=== PATIENT | female | born 1955 | race Caucasian/White ===

== ENCOUNTER 2020-02-14 23:44 | Emergency (ER) | payer MEDICARE ==
[2020-02-15 00:24] LABS: #Eosinphils 0.1 thou/uL (0.0-0.7); #Lymphocytes 1.4 thou/uL (1.20-3.40); #Monocytes 0.5 thou/uL (0.11-0.59); #Neutrophils 4.5 thou/uL (1.40-6.50); %Basophils 0.4 % (0.0-1.0); %Lymphocytes 21.4 % (21.0-51.0); %Monocytes 7.8 % (0.0-10.0); %Neutrophils 69.4 % (42.0-75.0); Mean Corpuscular HGB CONC 34.1 g/dL (32.0-36.0); Mean Corpuscular Hemoglobin 32.4 pg (27.0-31.0); Mean Corpuscular Volume 95.1 fL (78.0-98.0); Platelet Count 153 thou/uL (130-400); RBC Distribution Width 11.2 % (11.5-14.5); Red Blood Cell (RBC) Count 3.71 mill/uL (4.20-5.40); White Blood Cell (WBC) Count 6.5 thou/uL (4.8-10.8)
[2020-02-15 00:46] LABS: ALT (SGPT) 44 U/L (8-55); AST (SGOT) 53 U/L (5-34); Albumin 3.6 g/dL (3.4-4.8); Alkaline Phosphatase 101 U/L (40-110); Anion Gap 13 mmol/L (10-20); BUN (Urea Nitrogen) 21 mg/dL (9.8-20.1); Bilirubin, Total 0.4 mg/dL (0.2-1.2); Calc. Creatinine Clearance 0 mL/min (70-130); Carbon Dioxide 19 mmol/L (23-31); Chloride 111 mmol/L (98-107); Estimated GFR-MDRD 56; Globulin 3.1 g/dL (2.4-3.5); Glucose 117 mg/dL (80-115); Potassium 3.2 mmol/L (3.5-5.1); Protein, Total 6.7 g/dL (6.0-8.3); Sodium 140 mmol/L (136-145)
--- NOTE | 2020-02-15 07:23 | RAD ---
PORTABLE CHEST 1 VIEW: DATE: 02/14/2020. TIME: 11:58 p.m. HISTORY: Dyspnea. FINDINGS: The heart size is normal. The lungs are expanded without lobar consolidation, pneumothoraces, or ple ural effusions. IMPRESSION: No acute process. POS: AMADOU
--- NOTE | 2020-02-15 07:46 | CT ---
PRELIMINARY REPORT/[facility]/EMERGENCY AFTER HOURS PROCEDURE Exam: CT brain without contrast History: Slurred speech with altered mental status. Comparison: None. Findings: There are punctate bilateral basal ganglia calcifications. Bilateral periventricular and rice bcortical white matter hypodensities are nonspecific, most likely on the basis of chronic small vesse l ischemia. Goff-white interface preserved throughout. No evidence of sulcal effacement. No intracranial hemorrha ge, mass effect or midline shift. No hydrocephalus or extra-axial fluid collection. Calvarium intact. No focal scalp hematoma identified. Vascular calcifications are present. Orbits, paranasal sinuses a nd mastoid air cells are unremarkable. Impression: 1. No acute intracranial abnormality identified. If concern persists, consider MRI. 2. Senescent intracranial findings, as above. ELECTRONICALLY SIGNED BY: Wilfredo Deluna DO February 15, 2020 12:48:34 AM CDT FINAL REPORT CT BRAIN WITHOUT CONTRAST: I agree with the preliminary report given by Dr. Wilfredo Deluna of [facility]. POS: AMADOU
--- NOTE | 2020-02-15 07:51 | CT ---
PRELIMINARY REPORT/[facility]/EMERGENCY AFTER HOURS PROCEDURE CTA ANGIO CHEST W WO CON History: F65, ELEVATED D-DIMER, DYSPNEA. HX OF LUNG CANCER Comparison: None Findings: Cardiac size within normal limits. No pericardial effusion identified. Thoracic aorta is n ormal in caliber. No acute aortic abnormality. Mild atherosclerotic changes, including the coronary arteries. No pulmonary embolism identified. Motion artifact somewhat limits evaluation of the dista l branches. No evidence of lymphadenopathy in the chest by size criteria. Scattered subcentimeter ly mph nodes are nonspecific. Tracheobronchial tree appears patent. Chronic interstitial lung markings a re most pronounced in the lower lung zones. Mild fibrotic changes versus superimposed mild airspace opacities in the lung bases. No pleural effusion or pneumothorax identified. Status post cholecystectomy. Common bile duct measur es up to 9 mm. No intrahepatic biliary ductal dilatation identified. Osseous degenerative changes th roughout. There is diffuse osteopenia. No acute osseous abnormality. 5 mm sclerotic focus in the T 10 vertebral body. Impression: 1. No pulmonary embolism or acute aortic abnormality identified. 2. Chronic interstitial changes. Fibrotic changes are suspected in the inferior aspects of the lung bases. Superimposed mild airspace opacities are not excluded. Clustered group of nodules in the le ft lower lobe, the largest measures 3 mm. Correlate to exclude superimposed pneumonia, although neop lastic process is not excluded in this patient with known history of lung cancer. Correlate with any prior imaging to assess stability. Followup per final report recommendations. 3. Prominent common bile duct measuring up to 9 mm status post cholecystectomy. No significant intr ahepatic biliary ductal dilatation. 4. Additional findings, as above. Followup per final report recommendations. ELECTRONICALLY SIGNED BY: Wilfredo Deluna DO February 15, 2020 1:39:00 AM CDT FINAL REPORT CT PULMONARY ANGIOGRAM WITH IV CONTRAST AND 3D POSTPROCESSING: I agree with the preliminary report given by Dr. Wilfredo Deluna of [facility]. A 3-month fol lowup CT scan should be performed. CODE T POS: MZA
--- NOTE | 2020-02-16 13:24 | EKG ---
Test Reason : Blood Pressure : / mmHG Vent. Rate : 080 BPM Atrial Rate : 080 BPM P-R Int : 146 ms QRS Dur : 092 ms QT Int : 380 ms P-R-T Axes : 053 067 052 degrees QTc Int : 438 ms Normal sinus rhythm with sinus arrhythmia Possible Left atrial enlargement Borderline ECG Confirmed by TINO BARRON ([id number]), magazine editor ZIGGY LOPEZ ([id number]) on 02/16/2020 1:23:22 PM Referred By: Confirmed By:TINO BARRON
== END 2020-02-15 04:05 | disposition home or self-care (01) ==
LOC: ERS 23:44
DX: R20.2 Paresthesia of skin (principal); R06.00 Dyspnea, unspecified; I10 Essential (primary) hypertension; Z86.73 Personal history of transient ischemic attack (TIA), and cerebral infarction without residual deficits; Z79.899 Other long term (current) drug therapy
CPT/HCPCS: 70450; 71045; 71275; 80053; 84484; 85025; 85379; 93005